=== PATIENT | female | born 1985 | race Hispanic/Latino ===

== ENCOUNTER 2021-03-09 09:15 | Outpatient (CLI) | payer OTHER, MEDICAID, SELFPAY ==
--- NOTE | ~2021-03-09 | US_ITS ---
EXAMINATION: US right upper quadrant DATE: 03/09/2021 09:49 INDICATION: Abnormal liver function tests TECHNIQUE: Multiple grayscale and Doppler ultrasound images of the abdomen were obtained. COMPARISON: 04/11/[address] dated 05/14/2015 FINDINGS: Indeterminate 3.4 x 1.3 cm hypoechoic mass along the body of the pancreas posterior to a fluid-filled loop of small bowel. The visualized inferior vena cava is normal. Liver has normal echogenicity and contour, with a smooth surface. No liver lesion identified. No intrahepatic biliary duct dilation dominique pected. Portal venous flow was seen in the hepatopetal, normal direction and has normal Doppler wavef orm. Visual is portions of the right kidney demonstrates normal echogenicity and contour with no hydr onephrosis. The gallbladder is not visualized and reportedly surgically absent. The common bile duct measures 3 mm diameter which is normal. IMPRESSION: 1. 3.4 x 1.3 cm masslike hypoechoic region along the body of the pancreas. Would recommend further ev aluation with pre and postcontrast CT or MRI. 2. Status post cholecystectomy. No intra or extra hepatic biliary ductal dilation. Reviewed, dictated and finalized at location B. TACKER IMPRESSION: 1. 3.4 x 1.3 cm masslike hypoechoic region along the body of the pancreas. Woul d recommend further evaluation with pre and postcontrast CT or MRI. 2. Status post cholecystectomy. No intra or extra hepatic biliary ductal dilati on.
== END 2021-03-09 09:16 | disposition home or self-care (01) ==
LOC: ANHIMG 09:21
PROVIDERS: PCP Registered Nurse; Visit Provider Registered Nurse
DX: R94.5 Abnormal results of liver function studies (principal); Z90.49 Acquired absence of other specified parts of digestive tract
CPT/HCPCS: 76705

== ENCOUNTER 2021-08-09 11:09 | Emergency (ER) | payer OTHER, SELFPAY ==
--- NOTE | ~2021-08-09 | XR_ITS ---
EXAMINATION: XR shoulder LT min 2V INDICATION: Left shoulder pain TECHNIQUE: Four views of the left shoulder are submitted. COMPARISON: None FINDINGS: Normal alignment. No fracture. Glenohumeral and acromioclavicular joint spaces are normal. Soft tissues are unremarkable. IMPRESSION: 1. No acute osseous abnormality. Reviewed, dictated and finalized at location A.
[2021-08-09 11:15] VITALS: BP 135/90; PULSE 84; RESP 18; TEMP 36.6; O2SAT 100
--- NOTE | 2021-08-09 12:26 | ED.UPPEXIN ---
HPI - Extremity Injury (Upper) General Chief Complaint: Extremity Injury, Upper Stated Complaint: shoulder pain Time Seen by Provider: 08/09/21 12:02 Source: patient Mode of arrival: ambulatory History of Present Illness HPI narrative: 34-year-old female with complaints of left shoulder pain radiating down the left arm for the last 4 days. 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 Patient has tried ibuprofen, IcyHot, without relief. Certain movements decreased pain. Patient denies neck pain or any known trauma. Related Data Allergies Allergy/AdvReac Type Severity Reaction Status Date / Time No Known Allergies Allergy Unverified 06/11/13 14:18 Review of Systems Review of Systems: CONSTITUTIONAL: Denies fever, chills, or sweats. EYES: Denies visual changes, redness, or discharge. ENT: Denies rhinorrhea, congestion, sore throat, or otalgia. CARDIOVASCULAR: Denies chest pain, palpitations, or edema. RESPIRATORY: Denies cough or dyspnea. GASTROINTESTINAL: Denies abdominal pain, nausea, vomiting, or diarrhea. GENITOURINARY: Denies dysuria or hematuria. SKIN: Denies rash or itching. MUSCULOSKELETAL: Left shoulder pain radiating down left arm. Denies back pain, joint pain, or myalgia. NEUROLOGIC: Denies headache, numbness, dizziness, or weakness. PSYCHIATRIC: Denies anxiety or depression. Exam Narrative: GENERAL: Well-appearing, well-nourished, and in no acute distress. HEAD: Normocephalic, atraumatic. EYES: PERRLA and EOMI. ENT: Nares clear, no rhinorrhea or epistaxis. Mucous membranes moist. Oropharynx without tonsillar hypertrophy exudate or other lesions. Bilateral TMs pearly stuart nonbulging NECK: Supple. No adenopathy or masses. No carotid bruits or JVD CHEST: Clear to auscultation. No respiratory distress. No wheezes rales or rhonchi HEART: Regular rate and rhythm. No murmur heard. Normal peripheral pulses. ABDOMEN: Soft, nontender, nondistended, normal active bowel sounds. EXTREMITIES: Tenderness to left scapular area. Hand grasps equal bilaterally. Normal range of motion. No edema. SKIN: Warm, dry, no rash. NEURO: No spinal tenderness. No focal deficits. Alert and oriented x3. PSYCH: Normal mood and affect. Course Vital Signs Vital signs: Vital Signs Temperature 36.6 C 08/09/21 11:15 Pulse Rate 84 08/09/21 11:15 Respiratory Rate 18 08/09/21 11:15 Blood Pressure 135/90 08/09/21 11:15 Pulse Oximetry 100 08/09/21 11:15 Temperature 36.6 C 08/09/21 11:15 Pulse Rate 80 08/09/21 13:06 Respiratory Rate 16 08/09/21 13:06 Blood Pressure 132/86 08/09/21 13:06 Pulse Oximetry 97 08/09/21 13:06 MDM - Extremity Injury (Upper) MDM Narrative Medical decision making narrative: HPI as noted. Shoulder x-ray negative for acute abnormality. Patient with hand grasp equal bilaterally. Full range of motion noted, no trauma, no spinal tenderness. Plan for NSAIDs and follow-up with primary for further management. Differential Diagnosis Differential diagnosis: Likely other (Cervical radiculopathy, left shoulder pain, left shoulder strain, left arm pain) Medical Records Attestation: I reviewed the patient's medical records. Imaging Data Radiologist's impression: Impressions Shoulder X-Ray 08/09/21 12:00 IMPRESSION: 1. No acute osseous abnormality. Discharge Plan Discharge Clinical Impression: Acute pain of left shoulder, Arm pain, left Patient Disposition: Home, Self-Care Condition: Stable Instructions: Antibiotic Form, Arm Pain (ED) Additional Instructions: Take medications as prescribed. Follow-up with primary this week for further management. Return to the ER with any new or worsening symptoms. Prescriptions: New naproxen 500 mg tablet 500 mg PO BID PRN (Reason: pain) Qty: 60 RF: 0 cyclobenzaprine 10 mg tablet 10 mg PO HS PRN (Reason: muscl
[2021-08-09] MEDS: KETOROLAC (*BKC) 60 MG/2 ML VIAL IM (12:56)
[2021-08-09 13:06] VITALS: BP 132/86; PULSE 80; RESP 16; O2SAT 97
== END 2021-08-09 13:07 | disposition home or self-care (01) ==
PROVIDERS: Emergency Provider Nurse Practitioner Family; PCP Registered Nurse
DX: M25.512 Pain in left shoulder (principal)
CPT/HCPCS: 73030; 96372; 99283; J1100; J1885

== ENCOUNTER 2021-09-07 10:36 | Outpatient (CLI) | payer OTHER, SELFPAY ==
--- NOTE | ~2021-09-07 | XR_ITS ---
EXAM: XR cervical spine 4-5V DATE: 09/07/2021 11:01 HISTORY: CERVICAL RADICULOPATHY . COMPARISON: None available. FINDINGS: Craniocervical association and atlantoaxial joint are normal. No prevertebral soft tissue swelling. Cervical spine straightening as can occur with positioning or spasm. Minimal grade 1 marisol listhesis of C2 on C3 and C3 on C4, likely on a degenerative basis. Mild disc space narrowing at C2-3 and C3-4. Normal facets and posterior elements. IMPRESSION: Mild degenerative changes in the upper cervical spine. Reviewed, dictated and finalized at location K.
== END 2021-09-07 10:37 | disposition home or self-care (01) ==
PROVIDERS: PCP Registered Nurse; Visit Provider Registered Nurse
DX: M54.12 Radiculopathy, cervical region (principal)
CPT/HCPCS: 72050

== ENCOUNTER 2021-09-17 08:33 | Outpatient (CLI) | payer OTHER, SELFPAY ==
--- NOTE | ~2021-09-17 | MR_ITS ---
EXAMINATION: MR MRCP wo/w con/w 3D wo ind DATE: 09/17/2021 09:52 INDICATION: Mass of pancreas. TECHNIQUE: Magnetic resonance imaging (MRI) of the abdomen was performed without and with 15 mL Multi Rachid intravenous contrast. Sequences included coronal T2-weighted FS FSE, coronal T2-weighted FSE, a xial T1-weighted LAVA, coronal FS FIESTA, axial dual-echo T1-weighted SPGR, coronal lava-FLEX, sagitt al T2-weighted FSE, axial T2-weighted FSE, and axial DWI. Thick-slab T2-weighted FSE images were obta ined for magnetic resonance cholangiopancreatography (MRCP). Maximum intensity projection 3-D reconst ructions of the volumetric data were created by the technologist. Postcontrast sequences included cor onal LAVA-flex and time course of axial T1-weighted LAVA. COMPARISON: Abdomen ultrasound. 09/22, CT abdomen 05/14/2015 FINDINGS: ABDOMEN MRI: There is diffuse hepatic steatosis. The gallbladder is absent. The pancreas, spleen, adr enal glands, and kidneys are normal. There are no dilated loops of bowel. There are no pathologically enlarged lymph nodes. There is no free intraperitoneal fluid. ABDOMEN MRCP: The common duct is normal and measures 4 mm. No choledocholithiasis. IMPRESSION: 1. Normal pancreas. No abnormal mass. 2. Diffuse hepatic steatosis. Reviewed, dictated and finalized at location B.
[2021-09-17 09:02] LABS: Estimated Glomerular Filt Rate > 60
== END 2021-09-17 08:34 | disposition home or self-care (01) ==
LOC: ANHIMG 08:36
PROVIDERS: PCP Registered Nurse; Visit Provider Registered Nurse
DX: K86.89 Other specified diseases of pancreas (principal); K76.0 Fatty (change of) liver, not elsewhere classified
CPT/HCPCS: 74183; 76376; A9577

== ENCOUNTER 2021-10-12 08:45 | Outpatient (RCR) | payer OTHER, SELFPAY ==
--- NOTE | 2021-09-25 09:58 | PTOPEVAL ---
PHYSICAL THERAPY EVALUATION AND PLAN OF CARE 09-25-21 Thank you for referring Candy Xavier to [facility].? She is scheduled to be seen for therapy? 2x/week for 4 weeks. Please review, sign, date and return this plan of care ULIS. I agree with and certify that the following plan of care is medically necessary. Referring Physician Date Attending Provider: Odilia Vaughn NP Past Medical History Source of Past Medical History Patient Neurological History Hx Migraine Yes: occur about once/wk, duration of 2 hr to 2 days Cardiovascular History Hx Hypercholesterolemia Yes: meds Hx Hypertension Yes: meds Respiratory History Hx Other Respiratory Disorders Yes: seasonal allergies- take meds Gastrointestinal History Hx Cholecystectomy Yes Musculoskeletal History Hx Musculoskeletal Disorders No Significant History Endocrine History Hx Diabetes Yes: meds HEENT History Hx Tonsillectomy Yes Evaluation Information Diagnosis cervical radiculopathy Onset August 02, 2021 Subjective Information went on float trip with kids Query Text:As Reported By Patient/ and yard work, then woke up Family next day in pain; driving- hard due to L arm numbness, pain and turning steering wheel; went to ER 08-09-21 due to pain Diagnostic Tests X-Rays For This Problem Yes: min degenerative changes upper cervical,decr disc height MRI For This Problem No Other Tests For This Problem Yes: x ray of L shoulder negative Activity Level (Last 3 Months) Occupation student aide at school; off for summer Hand Dominance Left Comments Additional Prior Level of Function prior to this onset of pain, Comments indep with all activities; active lifestyle Pain Assessment Pain Scale Pain Scale Used Numeric (1 - 10) Self Report Pain Assessment Bilateral Spine, Cervical Reported Pain Level 4 Pain Description Aching,Dull,Numbness Pain Radiation Left Arm Radicular Pain Location numb in index finger constant; numb thumb and middle finger intermittent Pain Frequency Acute,Intermittent Other Pain Description L arm feels heavy and hard to move Lowest Pain Intensity 0 Greatest Pain Intensity 8 Pain Aggravating Factors Lifting
--- NOTE | 2021-10-06 13:25 | PCPTNOTE ---
Patient did not show up for scheduled appointment this date. Pt called and informed of her next appointment.
--- NOTE | 2021-10-15 14:49 | PCPTNOTE ---
Patient did not show up for scheduled appointment this date. Called and spoke to patient, she stated that she forgot and very sorry.
--- NOTE | 2021-10-22 09:45 | PCPTNOTE ---
pt did not show for today's reevaluation appt; called pt and left voice mail to call for time if needed additional therapy;
--- NOTE | 2021-11-05 14:51 | PCPTNOTE ---
PHYSICAL THERAPY DISCHARGE REPORT 11-05-21 Attending Provider: Odilia Vaughn NP Patient:Candy Xavier Date of :1985 Ms. Xavier has not returned for any further treatments since 10/12/2021, therefore she will be discharged at this time. She received 3 PT sessions from 09-25-21 to 10-12-21 for the diagnosis of neck pain. She did not show for 3 scheduled appointments. The goals were not addressed. Thank you for referring this patient to [facility]. Please review, sign, date and return this discharge summary LUIS. I have been updated about the patient's current status and I agree with discharge from the above service at this time. Referring Physician Date
== END 2021-11-05 16:08 | disposition home or self-care (01) ==
LOC: ANHPT 08:45
PROVIDERS: PCP Registered Nurse; Visit Provider Registered Nurse
DX: M54.12 Radiculopathy, cervical region (principal)
CPT/HCPCS: 97110; 97140; 97161